=== PATIENT | female | born 1965 | race Caucasian/White ===

== ENCOUNTER 2019-05-26 16:23 | Emergency (ER) | payer OTHER ==
[2019-05-26 16:29] VITALS: BP 129/76; PULSE 98; TEMP 98.3; BMI 32.0
--- NOTE | 2019-05-26 16:29 | PDOC ---
Rapid Medical Evaluation Chief Complaint: Edema Time Seen by Provider: 05/26/19 16:28 Medical Evaluation: Allergies Allergy/AdvReac Type Severity Reaction Status Date / Time No Known Allergies Allergy Verified 07/04/18 11:59 05/26/19 16:28 This patient had a brief in-person evaluation by me. cc: bipedal edema x 2 days also reports lower back pain that radiates to lower legs. Denies injuries or fall. PE: nad unlabored breathing bipedal edema, right erythematous Orders: none This patient will proceed to Ed for further evaluation Discharge Disposition - Diagnosis Pedal edema - Referrals - Patient Instructions - Post Discharge Activity
--- NOTE | 2019-05-26 19:12 | PDOC ---
History of Present Illness - General Chief Complaint: Edema Stated Complaint: PAIN Time Seen by Provider: 05/26/19 16:28 History Source: Patient - History of Present Illness Initial Comments: 05/26/19 19:13 54 YEAR OLD FEMALE c/o lower back pain for years now getting worse with pain radiating down both legs. reports pain to both knees. s/p arthroscopy to left knee. now with swelling to both legs x 1 week. denies fall/ trauma. Patient is currently on baclofen with no relief in pain. PCP: / Yadira Roberts ortho: s/p orthoscopy and cortisone shot Past History - Travel Traveled outside of the country in the last 30 days: Yes Close contact w/someone who was outside of country & ill: No - Past Medical History Allergies/Adverse Reactions: Allergies Allergy/AdvReac Type Severity Reaction Status Date / Time No Known Allergies Allergy Verified 05/26/19 16:32 Home Medications: Ambulatory Orders Meloxicam 15 mg PO DAILY 30 Days #30 tablet MDD 15mg 07/18/18 Cyclobenzaprine HCl [Flexeril 10 mg] 10 mg PO TID PRN #12 tablet 05/26/19 Ibuprofen 600 mg PO QID PRN #20 tablet 05/26/19 Lidocaine 5% Patch [Lidoderm -] 1 patch TP DAILY #7 patch 05/26/19 Nitrofurantoin Monohyd/M-Cryst [Macrobid -] 100 mg PO BID #14 capsule 05/26/19 COPD: No HTN: Yes Other medical history: rocecia - Suicide/Smoking/Psychosocial Hx Smoking History: Current every day smoker Have you smoked in the past 12 months: Yes Number of Cigarettes Smoked Daily: 10 Information on smoking cessation initiated: Yes 'Breaking Loose' booklet given: 07/04/18 Hx Alcohol Use: No Drug/Substance Use Hx: No Substance Use Type: None Review of Systems - Review of Systems Able to Perform ROS?: Yes Is the patient limited [place] proficient: No Musculoskeletal: Yes: Back Pain *Physical Exam - Vital Signs Last Vital Signs Temp Pulse Resp BP Pulse Ox 98.3 F 98 H 17 129/76 98 05/26/19 16:26 05/26/19 16:26 05/26/19 16:26 05/26/19 16:26 05/26/19 16:26 - Physical Exam General Appearance: Yes: Appropriately Dressed Respiratory/Chest: positive: Lungs Clear, Normal Breath Sounds Cardiovascular: positive: Regular Rhythm, Regular Rate Gastrointestinal/Abdominal: positive: Normal Bowel Sounds, Soft. negative: Tender Musculoskeletal: positive: Normal Inspection, Vertebral Tenderness (lumbar area pain). negative: CVA Tenderness Extremity: positive: Normal Capillary Refill, Normal Inspection, Normal Range of Motion Integumentary: positive: Normal Color, Dry, Warm Neurologic: positive: Fully Oriented, Alert, Normal Mood/Affect Progress Note - Progress Note Progress Note: A: UTI; Low back pain; leg swelling P: UA + 1 leuks US: negative Toradol Lidocaine patch *DC/Admit/Observation/Transfer Diagnosis at time of Disposition: Leg swelling Lower back pain Qualifiers: Chronicity: acute Back pain laterality: bilateral Sciatica presence: with sciatica Sciatica laterality: bilateral sciatica Qualified Code(s): M54.42 - Lumbago with sciatica, left side UTI (urinary tract infection) Qualifiers: Urinary tract infection type: acute cystitis Hematuria presence: without hematuria Qualified Code(s): N30.00 - Acute cystitis without hematuria - Discharge Dispostion Disposition: HOME - Prescriptions Prescriptions: Cyclobenzaprine HCl [Flexeril 10 mg] 10 mg PO TID PRN #12 tablet PRN Reason: Muscle Spasms Ibuprofen 600 mg PO QID PRN #20 tablet PRN Reason: Back Pain Lidocaine 5% Patch [Lidoderm -] 1 patch TP DAILY #7 patch Nitrofurantoin Monohyd/M-Cryst [Macrobid -] 100 mg PO BID #14 capsule - Referrals Referrals: Jeremiah Hutchinson MD [Primary Care Provider] - Dimas Mortensen MD [Staff Physician] - Call tomorrow - Patient Instructions Printed Discharge Instructions: Edema (Alternative Therapy) Additional Instructions: elevate legs as much as possible.Take baclofen as prescribed. You ultrasound here was negative. You are also given a prescription for antibiotics for urinary tract infection. It is important that you complete your antibiotic dose. Return to the emergency room for any worsening symptoms. You were given a referral for an orthopedic doctor - Post Discharge Activity Forms/Work/School Notes: Back to Work
[2019-05-26] MEDS ORDERED: LIDOCAINE 5% TOPICAL PATCH TP ONE (19:29)
[2019-05-26] MEDS ORDERED: KETOROLAC TROMETHAMINE 30 MG/1 ML VIAL IM ONE (19:29)
[2019-05-26] MEDS ORDERED: KETOROLAC TROMETHAMINE 30 MG/1 ML VIAL ONE (20:38)
[2019-05-26] MEDS ORDERED: LIDOCAINE 5% TOPICAL PATCH ONE (20:38)
[2019-05-26 21:20] LABS: EPI CELLS 6.3 /HPF (0-5/HPF); HYALINE CASTS 15 /lpf (0-8); URINE APPEARANCE CLEAR; URINE BACTERIA 262.4 /hpf (NEGATIVE); URINE BILIRUBIN NEGATIVE (NEGATIVE); URINE COLOR YELLOW; URINE GLUCOSE (UA) NEGATIVE (NEGATIVE); URINE KETONE TRACE (NEGATIVE); URINE LEUK ESTERASE 1+ (NEGATIVE); URINE NITRITE NEGATIVE (NEGATIVE); URINE PROTEIN NEGATIVE (NEGATIVE); URINE RBC 2 /hpf (0-4); URINE UROBILINOGEN 0.2 mg/dL (0.2-1.0); URINE WBC 22 /hpf (0-5)
[2019-05-26] MEDS ORDERED: LIDOCAINE PATCH REMOVAL MC SCH (22:00)
== END 2019-05-27 05:18 | disposition home or self-care (01) ==
LOC: JER 16:23
PROC: 3E0233Z Introduction of Anti-inflammatory into Muscle, Percutaneous Approach (ICD-10-PCS; principal; 2019-05-26)
DX: M54.42 Lumbago with sciatica, left side (principal); N39.0 Urinary tract infection, site not specified; R60.0 Localized edema
CPT/HCPCS: 81003; 93970-TC; 96372; 99281-25

== ENCOUNTER 2019-07-09 09:51 | Emergency (ER) | payer OTHER ==
[2019-07-09 10:05] VITALS: TEMP 98.2; BMI 32.0
[2019-07-09] MEDS ORDERED: ONDANSETRON 4 MG/2 ML VIAL IVPUSH ONE (10:21)
[2019-07-09] MEDS ORDERED: SODIUM CHLORIDE 1,000 ML IV STA (10:21)
[2019-07-09] MEDS ORDERED: KETOROLAC TROMETHAMINE 30 MG/1 ML VIAL IVPUSH ONE (10:22)
[2019-07-09 11:02] LABS: BASO % 1.1 % (0-2.0); EOS % 2.1 % (0-4.5); HEMATOCRIT 41.2 % (32.4-45.2); HEMOGLOBIN 14.2 GM/dL (10.7-15.3); LYMPH % 32.9 % (8-40); MCH 33.3 pg (25.7-33.7); MCHC 34.6 g/dl (32.0-36.0); MEAN CELL VOLUME 96.5 fl (80-96); MEAN PLT VOLUME 9.6 fl (7.5-11.1); NEUT % 53.9 % (42.8-82.8); PLATELET COUNT 168 K/MM3 (134-434); RBC 4.27 M/mm3 (3.60-5.2); RDW 13.4 % (11.6-15.6); WHITE BLOOD COUNT 8.1 K/mm3 (4.0-10.0)
[2019-07-09] MEDS ORDERED: ONDANSETRON 4 MG/2 ML VIAL ONE (11:02)
[2019-07-09] MEDS ORDERED: KETOROLAC TROMETHAMINE 30 MG/1 ML VIAL ONE (11:02)
--- NOTE | 2019-07-09 11:07 | PDOC ---
*Physical Exam - Vital Signs Last Vital Signs Temp Pulse Resp BP Pulse Ox 98.2 F 73 19 119/78 98 07/09/19 10:03 07/09/19 10:03 07/09/19 10:03 07/09/19 10:03 07/09/19 10:03 ED Treatment Course - LABORATORY CBC & Chemistry Diagram: 07/09/19 10:45 07/09/19 10:45 Medical Decision Making - Medical Decision Making 07/09/19 11:06 Pt seen by Midlevel Provider under my direct supervision Ancillary studies reviewed I agree with plan as outlined by Midlevel Provider *DC/Admit/Observation/Transfer Diagnosis at time of Disposition: Left renal stone - Discharge Dispostion Disposition: HOME Condition at time of disposition: Improved - Prescriptions Prescriptions: Oxycodone HCl/Acetaminophen [Percocet 5-325 mg Tablet] 1 - 2 tab PO Q6H PRN #12 tab MDD 4 PRN Reason: Pain Tamsulosin HCl [Flomax] 0.4 mg PO DAILY #7 cap.er.24h - Referrals Referrals: August Evans MD [Staff Physician] - Donna Hutchinson MD [Primary Care Provider] - - Patient Instructions Printed Discharge Instructions: DI for Kidney Stones Additional Instructions: Drink at least 2 L of water on a daily basis. Please take Flomax as prescribed and use Percocet as needed. Avoid operating heavy machinery while taking the Percocet. Otherwise you can take Motrin 600 mg for pain. Return if symptoms worsen. otherwise you may follow up with urology - Post Discharge Activity
[2019-07-09 11:22] LABS: PH,URINE 5.5 (5.0-8.0); URINE APPEARANCE CLEAR; URINE BILIRUBIN NEGATIVE (NEGATIVE); URINE COLOR YELLOW; URINE GLUCOSE (UA) NEGATIVE (NEGATIVE); URINE KETONE NEGATIVE (NEGATIVE); URINE LEUK ESTERASE 1+ (NEGATIVE); URINE NITRITE NEGATIVE (NEGATIVE); URINE PROTEIN NEGATIVE (NEGATIVE); URINE UROBILINOGEN 0.2 mg/dL (0.2-1.0)
[2019-07-09 11:30] LABS: ALBUMIN 3.9 g/dl (3.4-5.0); BILIRUBIN,TOTAL 0.5 mg/dL (0.2-1); BLOOD UREA NITROGEN 6.5 mg/dL (7-18); CALCIUM 9.1 mg/dL (8.5-10.1); CREATININE 0.5 mg/dL (0.55-1.3); POTASSIUM 4.1 mmol/L (3.5-5.1); TOT PROT 7.2 g/dl (6.4-8.2)
[2019-07-09 11:40] LABS: EPI CELLS 2.7 /HPF (0-5/HPF); HYALINE CASTS 1.86 /lpf (0-8); URINE BACTERIA 75.7 /hpf (NEGATIVE); URINE RBC 0.4 /hpf (0-4); URINE WBC 5.1 /hpf (0-5)
--- NOTE | 2019-07-09 11:47 | PDOC ---
History of Present Illness - General Chief Complaint: Pain, Acute Stated Complaint: BACK PAIN/FLANK PAIN Time Seen by Provider: 07/09/19 10:16 History Source: Patient Exam Limitations: No Limitations - History of Present Illness Initial Comments: 07/09/19 12:15 54-year-old female presents to ED with complaints of right back pain radiating to her right flank area for the past 2 days unrelieved with Robaxin. Patient states has history of low back pain but also has history of renal colic years ago without surgical intervention. Patient denies any fever, chills, urinary complaints, bowel complaints but does state mild nausea. Quality: reports: aching, sharpness Abdominal Pain Onset Location: reports: RLQ, flank (rt flank) Pain Radiation: reports: no radiation Activities at Onset: reports: none Aggravating Factors: improves with: None Alleviating Factors: improves with: None Past History - Travel Traveled outside of the country in the last 30 days: No Close contact w/someone who was outside of country & ill: No - Past Medical History Allergies/Adverse Reactions: Allergies Allergy/AdvReac Type Severity Reaction Status Date / Time No Known Allergies Allergy Verified 07/09/19 10:05 Home Medications: Ambulatory Orders Meloxicam 15 mg PO DAILY 30 Days #30 tablet MDD 15mg 07/18/18 Cyclobenzaprine HCl [Flexeril 10 mg] 10 mg PO TID PRN #12 tablet 05/26/19 Ibuprofen 600 mg PO QID PRN #20 tablet 05/26/19 Lidocaine 5% Patch [Lidoderm -] 1 patch TP DAILY #7 patch 05/26/19 Nitrofurantoin Monohyd/M-Cryst [Macrobid -] 100 mg PO BID #14 capsule 05/26/19 Oxycodone HCl/Acetaminophen [Percocet 5-325 mg Tablet] 1 - 2 tab PO Q6H PRN #12 tab MDD 4 07/09/19 Tamsulosin HCl [Flomax] 0.4 mg PO DAILY #7 cap.er.24h 07/09/19 COPD: No HTN: Yes Kidney Stones: Yes - Suicide/Smoking/Psychosocial Hx Smoking History: Current every day smoker Have you smoked in the past 12 months: Yes Number of Cigarettes Smoked Daily: 10 Information on smoking cessation initiated: Yes 'Breaking Loose' booklet given: 07/04/18 Hx Alcohol Use: Yes Drug/Substance Use Hx: No Substance Use Type: None Patient Lives Alone: No Lives with/in: spouse/SO Review of Systems - Review of Systems Able to Perform ROS?: Yes Constitutional: No: Symptoms Reported HEENTM: No: Symptoms Reported Respiratory: No: Symptoms reported Cardiac (ROS): No: Symptoms Reported ABD/GI: Yes: Nausea : Yes: Flank Pain Musculoskeletal: Yes: Back Pain. No: Joint Pain, Muscle Weakness Integumentary: No: Symptoms Reported Neurological: No: Symptoms reported Hematologic/Lymphatic: No: Symptoms Reported *Physical Exam - Vital Signs Last Vital Signs Temp Pulse Resp BP Pulse Ox 98.2 F 73 19 119/78 98 07/09/19 10:03 07/09/19 10:03 07/09/19 10:03 07/09/19 10:03 07/09/19 10:03 - Physical Exam General Appearance: Yes: Nourished, Appropriately Dressed. No: Apparent Distress HEENT: negative: Pale Conjunctivae Neck: positive: Normal Thyroid, Supple Respiratory/Chest: positive: Lungs Clear, Normal Breath Sounds. negative: Respiratory Distress, Accessory Muscle Use Cardiovascular: positive: Regular Rhythm, Regular Rate. negative: Murmur Gastrointestinal/Abdominal: positive: Soft, Tenderness (right flank) Musculoskeletal: negative: CVA Tenderness (R), Vertebral Tenderness (no midline . Positive tenderness to right paraspinous at L5 level) Extremity: positive: Normal Inspection, Normal Range of Motion Integumentary: positive: Normal Color, Warm, Moist Neurologic: positive: Motor Strength 5/5 (ambulatory) ED Treatment Course - LABORATORY CBC & Chemistry Diagram: 07/09/19 10:45 07/09/19 10:45 - ADDITIONAL ORDERS Additional order review: Laboratory Results 07/09/19 10:45 Urine Color Yellow Urine Appearance Clear Urine pH 5.5 Ur Specific Lewis 1.003 L Urine Protein Negative Urine Glucose (UA) Negative Urine Ketones Negative Urine Blood Negative Urine Nitrite Negative Urine Bilirubin Negative Urine Urobilinogen 0.2 Ur Leukocyte Esterase 1+ H - RADIOLOGY Radiology Studies Ordered: Category Date Time Status SPIRAL- RENAL-STONE CT [CT] Stat CT Scan 07/09/19 10:29 Ordered - Medications Given in the ED: ED Medications Discontinued Medications Generic Name Dose Route Start Last Admin Trade Name Freq PRN Reason Stop Dose Admin Sodium Chloride 1,000 mls @ 1,000 mls/hr 07/09/19 10:21 07/09/19 11:01 Normal Saline - IV 07/09/19 11:20 1,000 mls/hr ASDIR STA Administration Ketorolac Tromethamine 30 mg 07/09/19 10:22 07/09/19 11:01 Toradol Injection - IVPUSH 07/09/19 10:23 30 mg ONCE ONE Administration Ondansetron HCl 4 mg 07/09/19 10:21 07/09/19 11:01 Zofran Injection IVPUSH 07/09/19 10:22 4 mg ONCE ONE Administration Medical Decision Making - Medical Decision Making 07/09/19 11:40 Chief complaint: Right back pain radiating to right flank for the past few days without aggravating or alleviating factors. Patient states history of low back pain and right kidney stones years ago patient took baclofen this morning with no relief. Exam patient with right flank and right paraspinous tenderness on exam, vital stable Plan: Labs, urine, spiral CT, IV fluids, Toradol 07/09/19 13:52 Shows punctate nonobstructing right renal stone. There is mild right renal hydronephrosis and proximal hydroureteral or without evidence of an obstructing renal or ureteral stone. The liver is slightly enlarged with diffuse fatty infiltration. Patient states feeling better. Will discharge patient home with Percocet and Flomax along with supportive care instructions. Laboratory Tests 07/09/19 07/09/19 07/09/19 10:45 10:45 10:45 WBC 8.1 Hgb 14.2 Hct 41.2 MCV 96.5 H Absolute Neuts (auto) 4.4 Sodium 139 Potassium 4.1 Chloride 107 Carbon Dioxide 24 Anion Gap 9 BUN 6.5 L Creatinine 0.5 L Magnesium AST 122 H Lipase 201 Urine Ketones Urine Nitrite Urine Bilirubin Urine WBC (Auto) Urine RBC (Auto) 07/09/19 07/09/19 10:45 10:45 WBC Hgb Hct MCV Absolute Neuts (auto) Sodium Potassium Chloride Carbon Dioxide Anion Gap BUN Creatinine Magnesium 2.3 AST Lipase Urine Ketones Negative Urine Nitrite Negative Urine Bilirubin Negative Urine WBC (Auto) 5.1 Urine RBC (Auto) 0.4 *DC/Admit/Observation/Transfer Diagnosis at time of Disposition: Left renal stone - Discharge Dispostion Disposition: HOME Condition at time of disposition: Improved - Prescriptions Prescriptions: Oxycodone HCl/Acetaminophen [Percocet 5-325 mg Tablet] 1 - 2 tab PO Q6H PRN #12 tab MDD 4 PRN Reason: Pain Tamsulosin HCl [Flomax] 0.4 mg PO DAILY #7 cap.er.24h - Referrals Referrals: Donna Hutchinson MD [Primary Care Provider] - August Evans MD [Staff Physician] - - Patient Instructions Printed Discharge Instructions: DI for Kidney Stones Additional Instructions: Drink at least 2 L of water on a daily basis. Please take Flomax as prescribed and use Percocet as needed. Avoid operating heavy machinery while taking the Percocet. Otherwise you can take Motrin 600 mg for pain. Return if symptoms worsen. otherwise you may follow up with urology - Post Discharge Activity
[2019-07-09] MEDS ORDERED: morphine CARPU-JECT 2 MG/1 ML DISP.SYRIN IVPUSH ONE (14:52)
[2019-07-09] MEDS ORDERED: MORPHINE SULFATE 2 MG/ML VIAL ONE (15:08)
[2019-07-09 15:24] VITALS: BP 134/74; PULSE 80
== END 2019-07-09 15:33 | disposition home or self-care (01) ==
LOC: JER 09:51
PROC: 3E0333Z Introduction of Anti-inflammatory into Peripheral Vein, Percutaneous Approach (ICD-10-PCS; principal; 2019-07-09)
PROC: 3E0337Z Introduction of Electrolytic and Water Balance Substance into Peripheral Vein, Percutaneous Approach (ICD-10-PCS; 2019-07-09)
PROC: 3E033NZ Introduction of Analgesics, Hypnotics, Sedatives into Peripheral Vein, Percutaneous Approach (ICD-10-PCS; 2019-07-09)
PROC: 3E033GC Introduction of Other Therapeutic Substance into Peripheral Vein, Percutaneous Approach (ICD-10-PCS; 2019-07-09)
DX: N20.0 Calculus of kidney (principal); Z87.442 Personal history of urinary calculi; N13.39 Other hydronephrosis; I10 Essential (primary) hypertension; F17.210 Nicotine dependence, cigarettes, uncomplicated
CPT/HCPCS: 36415; 74176-TC; 80053; 81003; 83690; 83735; 85025; 87077; 87086; 96361; 96374; 96375; 99283-25; J7030